=== PATIENT | female | born 2000 | race Caucasian/White ===

== ENCOUNTER → 2018-04-02 11:45 | Outpatient (CLI) | payer MEDICAID, SELFPAY | PROVIDERS: Referring Provider Otolaryngology; Visit Provider Otolaryngology | DX: J02.9 Acute pharyngitis, unspecified (principal) | CPT/HCPCS: 87070; 87077 ==

== ENCOUNTER → 2018-07-06 16:10 | Outpatient (CLI) | payer MEDICAID, SELFPAY ==
--- NOTE | 2018-07-06 | TONS_PTH ---
PATIENT: KIERAN FOX LOC: [facility] U#:[id number] AGE/SX: 24/F ROOM: RE07/06/[address]: Dr. Ranjit Ghotra MD : 2000 BED: DIS: SPEC #: [id number] RECD: 07/06/18 15:30 STATUS: KAREN CONNIE #: [id number] POLY: 07/06/18 00:[address]: Ranjit Ghtora DEPT: SURGICAL PATHOLOGY RECD BY: Jaime Del Toro ENTERED: 07/07/18 14:20 SP TYPE: TONSILS OTHR DR: KATRINA Tissues: Tonsil, NOS Procedures: Surgery Specimen Level III HEADER OPERATION: Tonsillectomy PRE-OP DIAGNOSIS: Chronic tonsillitis TISSUE SUBMITTED: Tonsils (pin in right) MICROSCOPIC DIAGNOSIS Right and left tonsils, bilateral tonsillectomies: Benign lymphoid hyperplasia. Organisms consistent with actinomyces. AM:sam 07/08/18 COMMENT Case has been reviewed in consultation with Dr. Blanca who concurs with the above diagnosis. IDC:SJ MICROSCOPIC DESCRIPTION Slides are reviewed. GROSS DESCRIPTION Received is one container labeled with the patient's name and designated tonsils - pin on right are two tonsils that in aggregate weigh 5.9 gm. The right tonsil has a pin on it and measures 2.5 x 1.5 x 1 cm. The left tonsil measures 2.5 x 1.5 x 1 cm. The left tonsil shows focal wooten-yellowish area measuring 1.2 x 1 cm. The area is ill-defined. Both tonsils are similar in appearance. The external surfaces are pink-wooten, smooth, glistening and somewhat lobulated. Focally they are hemorrhagic, granular and bear cautery artifact. Serial cross sections through the tonsils reveal normal tonsillar architecture. Sections are submitted in three cassettes as follows: 1 - right tonsil, 2 & 3 - left tonsil, entirely submitted. / NIALL:sam 07/07/18 TC:5 CPT: 48709 x2
== END ==
PROVIDERS: Referring Provider Otolaryngology; Visit Provider Otolaryngology
DX: J35.01 Chronic tonsillitis (principal)
CPT/HCPCS: 88304